=== PATIENT | female | born 1995 | race Caucasian/White ===

== ENCOUNTER 2017-08-03 05:51 | Inpatient (IN) ==
--- OUTSIDE RECORDS SUMMARY | 2017-08-03 05:56 | External Medical Summary ---
:1995 Author Organization [facility] Address [address] [place] [address] Care Team Providers Name Role Phone Alessandra Kirkpatrick Unavailable Unavailable PROBLEMS Type Condition ICD9-CM Code LVN40-ZM Code Onset Condition SNOMED Code Dates Status Problem Mild intermittent J45.20 Active 571962722 asthma without complication Problem Normal first Z34.01 Active 578378396 confirmed, currently in first trimester ALLERGIES No Information SOCIAL HISTORY Never Assessed PLAN OF CARE VITAL SIGNS MEDICATIONS Unknown Medications RESULTS No Results PROCEDURES No Known procedures IMMUNIZATIONS No Known Immunizations MEDICAL (GENERAL) HISTORY Type Description Date Medical History Mild intermittent asthma without complication Surgical History Inguinal hernia repair 15 months
--- OUTSIDE RECORDS SUMMARY | 2017-08-03 05:56 | External Medical Summary ---
:1995 Author Organization [facility] Address [address] [place] [address] Care Team Providers Name Role Phone Alessandra Kirkpatrick Unavailable Unavailable PROBLEMS Type Condition ICD9-CM Code JSH18-BP Code Onset Condition SNOMED Code Dates Status Problem Acute allergic J30.9 Active 45053474 rhinitis, unspecified seasonality, unspecified trigger Problem Mild intermittent J45.20 Active 204385686 asthma without complication Problem Normal first Z34.01 Active 740847488 confirmed, currently in first trimester ALLERGIES No Information SOCIAL HISTORY Never Assessed PLAN OF CARE Activity Details Follow Up 2 Weeks Reason:OB check VITAL SIGNS Weight 132.4 lbs 2017-06-09 Blood pressure systolic 110 mm Hg 2017-06-09 Blood pressure diastolic 64 mm Hg 2017-06-09 MEDICATIONS Medication Instructions Dosage Frequency Start End Date Duration Status Date Zyrtec Allergy Orally Once a 1 tablet 24h 16 May, 15 Oct, day(s) Active 10 MG day 2016 2017 ProAir HFA 108 Inhalation every 2 puffs as 4h Feb, days Active (90 Base) 4 hrs needed 2016 MCG/ACT RESULTS No Results PROCEDURES Procedure Date Ordered Result Body Site INJ : TDaP 7YRS AND OLDER (Adacel) Jun 09, 2017 IMMUNIZATIONS Vaccine Route Administration Date Status INJ: Tdap 7yrs and Older(adacel) IM Intramuscular Jun 09, 2017 Administered MEDICAL (GENERAL) HISTORY Type Description Date Medical History Mild intermittent asthma without complication Surgical History Inguinal hernia repair 15 months
--- OUTSIDE RECORDS SUMMARY | 2017-08-03 05:56 | External Medical Summary ---
:1995 Author Organization [facility] Address [address] [place] [address] Care Team Providers Name Role Phone Alessandra Kirkpatrick Unavailable Unavailable PROBLEMS Type Condition ICD9-CM Code JPJ90-RQ Code Onset Condition SNOMED Code Dates Status Problem Acute allergic J30.9 Active 85838167 rhinitis, unspecified seasonality, unspecified trigger Problem Mild intermittent J45.20 Active 408301558 asthma without complication Problem Normal first Z34.01 Active 422759796 confirmed, currently in first trimester ALLERGIES No Information SOCIAL HISTORY Never Assessed PLAN OF CARE Activity Details Follow Up 2 Weeks Reason:OB check Pending Test UDS CONFRIMATION VITAL SIGNS Weight 136 lbs 2017-06-23 Blood pressure systolic 110 mm Hg 2017-06-23 Blood pressure diastolic 72 mm Hg 2017-06-23 MEDICATIONS Medication Instructions Dosage Frequency Start End Date Duration Status Date ProAir HFA 108 Inhalation every 2 puffs as 4h Feb, days Active (90 Base) 4 hrs needed 2016 MCG/ACT Zyrtec Allergy Orally Once a 1 tablet 24h May, Oct, 30 day(s) Active 10 MG day 2016 2017 RESULTS Name Result Date Reference Range [facility] In-House UDS 2017-06-23 THC NEG NEGATIVE - COCAINE NEG NEGATIVE - OPIATES NEG NEGATIVE - AMPHETAMINE NEG NEGATIVE - METHAMPHETAMINE NEG NEGATIVE - PHENCYCLIDINE NEG NEGATIVE - ECSTACY(MDMA) NEG NEGATIVE - BARBITURATES NEG NEGATIVE - BENZODIAZEPHINES NEG NEGATIVE - METHADONE NEG NEGATIVE - TRICYCLIC ANTIDEPRESSANTS NON-NEG NEGATIVE - OXYCODONE NEG NEGATIVE - ALL NON-NEGATIVES WILL BE SENT FOR CONFIRMATION BY PROVIDER REQUEST PROCEDURES Procedure Date Ordered Result Body Site DRUG TEST PRSMV DIR OPT OBS Jun 23, 2017 IMMUNIZATIONS No Known Immunizations MEDICAL (GENERAL) HISTORY Type Description Date Medical History Mild intermittent asthma without complication Surgical History Inguinal hernia repair 15 months
--- OUTSIDE RECORDS SUMMARY | 2017-08-03 05:56 | External Medical Summary ---
:1995 Author Organization [facility] Address [address] [place] [address] Care Team Providers Name Role Phone Alessandra Kirkpatrick Unavailable Unavailable PROBLEMS Type Condition ICD9-CM Code NVE74-IL Code Onset Condition SNOMED Code Dates Status Problem Acute allergic J30.9 Active 60073849 rhinitis, unspecified seasonality, unspecified trigger Problem Mild intermittent J45.20 Active 137922273 asthma without complication Problem Normal first Z34.01 Active 955211571 confirmed, currently in first trimester ALLERGIES No Information SOCIAL HISTORY Never Assessed PLAN OF CARE VITAL SIGNS MEDICATIONS Unknown Medications RESULTS No Results PROCEDURES No Known procedures IMMUNIZATIONS No Known Immunizations MEDICAL (GENERAL) HISTORY Type Description Date Medical History Mild intermittent asthma without complication Surgical History Inguinal hernia repair 15 months
--- OUTSIDE RECORDS SUMMARY | 2017-08-03 05:56 | External Medical Summary ---
:[address] [facility] Address [address] [place] [address] Care Team Providers Name Role Phone Alessandra Kirkpatrick Unavailable Unavailable PROBLEMS Type Condition ICD9-CM Code HLD57-QT Code Onset Condition SNOMED Code Dates Status Problem Acute allergic J30.9 Active 23980968 rhinitis, unspecified seasonality, unspecified trigger Problem Mild intermittent J45.20 Active 951570006 asthma without complication Problem Normal first Z34.01 Active 756583230 confirmed, currently in first trimester ALLERGIES No Information SOCIAL HISTORY Never Assessed PLAN OF CARE Activity Details Follow Up 2 Weeks Reason:OB check Pending Test URINE GC/CHLAMYDIA* VITAL SIGNS Weight 131 lbs 2017-05-26 Blood pressure systolic 100 mm Hg 2017-05-26 Blood pressure diastolic 66 mm Hg 2017-05-26 MEDICATIONS Medication Instructions Dosage Frequency Start End Date Duration Status Date Zyrtec Allergy Orally Once a 1 tablet 24h 16 May, Oct, 30 day(s) Active 10 MG day 2016 2017 Flagyl 500 MG Orally BID 1 tablet 12h 16 May, May, 07 days Active 2016 2016 ProAir HFA 108 Inhalation every 2 puffs as 4h Feb, 30 days Active (90 Base) 4 hrs needed 2016 MCG/ACT RESULTS Name Result Date Reference Range [facility] Wet [facility] 2017-05-26 WBC's 0 NONE - SEEN Clue Cells FEW NONE - SEEN Yeast 0 NONE - SEEN Trich 0 NONE - SEEN Bacteria MOD NONE - SEEN SQ Epi MANY NONE - SEEN Comment [facility] In-House UDS 2017-05-26 THC NEG NEGATIVE - COCAINE NEG NEGATIVE - OPIATES NEG NEGATIVE - AMPHETAMINE NEG NEGATIVE - METHAMPHETAMINE NEG NEGATIVE - PHENCYCLIDINE NEG NEGATIVE - ECSTACY(MDMA) NEG NEGATIVE - BARBITURATES NEG NEGATIVE - BENZODIAZEPHINES NEG NEGATIVE - METHADONE NEG NEGATIVE - TRICYCLIC ANTIDEPRESSANTS NEG NEGATIVE - OXYCODONE NEG NEGATIVE - ALL NON-NEGATIVES WILL BE SENT FOR CONFIRMATION PROCEDURES Procedure Date Ordered Result Body Site [facility] WET [facility] May 26, 2017 DRUG TEST PRSMV DIR OPT OBS May 26, 2017 IMMUNIZATIONS No Known Immunizations MEDICAL (GENERAL) HISTORY Type Description Date Medical History Mild intermittent asthma without complication Surgical History Inguinal hernia repair 15 months
--- OUTSIDE RECORDS SUMMARY | 2017-08-03 05:56 | External Medical Summary ---
:1995 Author Organization [facility] Address [address] [place] [address] Care Team Providers Name Role Phone Alessandra Kirkpatrick Unavailable Unavailable PROBLEMS Type Condition ICD9-CM Code BTV57-AL Code Onset Condition SNOMED Code Dates Status Problem Mild intermittent J45.20 Active 332276222 asthma without complication Problem Normal first Z34.01 Active 380589698 confirmed, currently in first trimester ALLERGIES No Information SOCIAL HISTORY Never Assessed PLAN OF CARE VITAL SIGNS MEDICATIONS Unknown Medications RESULTS No Results PROCEDURES No Known procedures IMMUNIZATIONS No Known Immunizations MEDICAL (GENERAL) HISTORY Type Description Date Medical History Mild intermittent asthma without complication Surgical History Inguinal hernia repair 15 months
--- OUTSIDE RECORDS SUMMARY | 2017-08-03 05:56 | External Medical Summary ---
:1995 Author Organization [facility] Address [address] [place] [address] Care Team Providers Name Role Phone Alessandra Kirkpatrick Unavailable Unavailable PROBLEMS Type Condition ICD9-CM Code VRV05-PG Code Onset Condition SNOMED Code Dates Status Problem Acute allergic J30.9 Active 47398112 rhinitis, unspecified seasonality, unspecified trigger Problem Mild intermittent J45.20 Active 472549011 asthma without complication Problem Normal first Z34.01 Active 515010091 confirmed, currently in first trimester ALLERGIES No Information SOCIAL HISTORY Never Assessed PLAN OF CARE Activity Details Follow Up 1 Week Reason:OB check Pending Test US BIOPHYSICAL VITAL SIGNS Weight 142.8 lbs 2017-07-27 Blood pressure systolic 126 mm Hg 2017-07-27 Blood pressure diastolic 80 mm Hg 2017-07-27 MEDICATIONS Medication Instructions Dosage Frequency Start End Date Duration Status Date Zyrtec Allergy Orally Once a 1 tablet 24h 16 May, 15 Oct, 30 day(s) Active 10 MG day 2016 2017 ProAir HFA 108 Inhalation every 2 puffs as 4h Feb, days Active (90 Base) 4 hrs needed 2016 MCG/ACT RESULTS Name Result Date Reference Range [facility] In-House UDS 2017-07-27 THC NEG NEGATIVE - COCAINE NEG NEGATIVE [...] Site DRUG TEST PRSMV DIR OPT OBS Jul 27, 2017 BIOPHYS PROFILE W/NST Jul 27, 2017 IMMUNIZATIONS No Known Immunizations MEDICAL (GENERAL) HISTORY Type Description Date Medical History Mild intermittent asthma without complication Surgical History Inguinal hernia repair 15 months
--- OUTSIDE RECORDS SUMMARY | 2017-08-03 05:56 | External Medical Summary ---
:1995 Author Organization [facility] Address [address] [place] [address] Care Team Providers Name Role Phone Alessandra Kirkpatrick Unavailable Unavailable PROBLEMS Type Condition ICD9-CM Code VCE36-BP Code Onset Condition SNOMED Code Dates Status Problem Acute allergic J30.9 Active 24503887 rhinitis, unspecified seasonality, unspecified trigger Problem Mild intermittent J45.20 Active 789670862 asthma without complication Problem Normal first Z34.01 Active 049126192 confirmed, currently in first trimester ALLERGIES No Information SOCIAL HISTORY Never Assessed PLAN OF CARE Activity Details Follow Up 2 Weeks Reason:OB check VITAL SIGNS Weight 145 lbs 2017-07-05 Blood pressure systolic 118 mm Hg 2017-07-05 Blood pressure diastolic 74 mm Hg 2017-07-05 MEDICATIONS Medication Instructions Dosage Frequency Start End Date Duration Status Date Zyrtec Allergy Orally Once a 1 tablet 24h 16 May, 15 Oct, day(s) Active 10 MG day 2016 2017 ProAir HFA 108 Inhalation every 2 puffs as 4h Feb, days Active (90 Base) 4 hrs needed 2016 MCG/ACT RESULTS Name Result Date Reference Range [facility] In-House UDS 2017-07-05 THC NEG NEGATIVE - COCAINE NEG NEGATIVE [...] DRUG TEST PRSMV DIR OPT OBS Jul 05, 2017 IMMUNIZATIONS No Known Immunizations MEDICAL (GENERAL) HISTORY Type Description Date Medical History Mild intermittent asthma without complication Surgical History Inguinal hernia repair 15 months
--- OUTSIDE RECORDS SUMMARY | 2017-08-03 05:56 | External Medical Summary ---
:1995 Author Organization [facility] Address [address] [place] [address] Care Team Providers Name Role Phone Alessandra Kirkpatrick Unavailable Unavailable PROBLEMS Type Condition ICD9-CM Code WHI45-ZC Code Onset Condition SNOMED Code Dates Status Problem Normal first Z34.01 Active 568059791 confirmed, currently in first trimester Problem Mild intermittent J45.20 Active 151819927 asthma without complication ALLERGIES No Information SOCIAL HISTORY Never Assessed PLAN OF CARE VITAL SIGNS MEDICATIONS Unknown Medications RESULTS No Results PROCEDURES No Known procedures IMMUNIZATIONS No Known Immunizations MEDICAL (GENERAL) HISTORY Type Description Date Medical History Mild intermittent asthma without complication Surgical History Inguinal hernia repair 15 months
--- OUTSIDE RECORDS SUMMARY | 2017-08-03 05:56 | External Medical Summary ---
:1995 Author Organization [facility] Address [address] [place] [address] Care Team Providers Name Role Phone Alessandra Kirkpatrick Unavailable Unavailable PROBLEMS Type Condition ICD9-CM Code IFA30-SJ Code Onset Condition SNOMED Code Dates Status Problem Mild intermittent J45.20 Active 047435981 asthma without complication Problem Normal first Z34.01 Active 379292668 confirmed, currently in first trimester ALLERGIES No Information SOCIAL HISTORY Never Assessed PLAN OF CARE Activity Details Follow Up 2 Weeks Reason:OB check Pending Test GLUC 1 HR PP(GLUCOLA) PREG Pending Test CBC AUTO DIFF MANUAL IF INDICATED* VITAL SIGNS Weight 131 lbs 2017-05-10 Blood pressure systolic 98 mm Hg 2017-05-10 Blood pressure diastolic 64 mm Hg 2017-05-10 MEDICATIONS Medication Instructions Dosage Frequency Start End Date Duration Status Date Orally Daily 1 tablet 24h Active Vitamin 27-0.8 MG ProAir HFA 108 Inhalation every 2 puffs as 4h Feb, days Active (90 Base) 4 hrs needed 2016 MCG/ACT RESULTS Name Result Date Reference Range [facility] Venipuncture-Charge Only 2017-05-10 [facility] In-House UDS 2017-05-10 THC NEG NEGATIVE - COCAINE NEG NEGATIVE - OPIATES NEG NEGATIVE - AMPHETAMINE NEG NEGATIVE - METHAMPHETAMINE NEG NEGATIVE - PHENCYCLIDINE NEG NEGATIVE - ECSTACY(MDMA) NEG NEGATIVE - BARBITURATES NEG NEGATIVE - BENZODIAZEPHINES NEG NEGATIVE - METHADONE NEG NEGATIVE - TRICYCLIC ANTIDEPRESSANTS NEG NEGATIVE - OXYCODONE NEG NEGATIVE - ALL NON-NEGATIVES WILL BE SENT FOR CONFIRMATION GLUC 1 HR PP(GLUCOLA) PREG 2017-05-10 Reference Lab GLU GM DOSE: R SERUM 1 HOUR 95 CBC AUTO DIFF MANUAL IF INDICATED* 2017-05-10 WBC 12.0 4.0 - 10.1 %LYMPH 24 20 - 40 %MONO 8.2 1.7 - 9.3 %GRAN 66.2 42.2 - 75.2 %EOS 1 0 - 2 %BASO 0 0 - 1 RBC 4.10 3.50 - 6.00 HEMOGLOBIN 12.1 12.0 - 15.0 HEMATOCRIT 35.5 36.0 - 44.0 MCV 86.6 80.0 - 100 MCH 29.5 27.0 - 34.0 MCHC 34.1 31.5 - 36.0 RDW 13.0 11.5 - 14.0 PLT 293 150 - 450 MPV 10.7 7.4 - 11.0 MANUAL DIFF NOT INDICATED PROCEDURES Procedure Date Ordered Result Body Site DRUG TEST PRSMV DIR OPT OBS May 10, 2017 VENIPUNCTURE May 10, 2017 IMMUNIZATIONS No Known Immunizations MEDICAL (GENERAL) HISTORY Type Description Date Medical History Mild intermittent asthma without complication Surgical History Inguinal hernia repair 15 months
--- OUTSIDE RECORDS SUMMARY | 2017-08-03 05:56 | External Medical Summary ---
:1995 Author Organization [facility] Address [address] [place] [address] Care Team Providers Name Role Phone Zia Noonan Unavailable Unavailable PROBLEMS Type Condition ICD9-CM Code PLD19-RQ Code Onset Condition SNOMED Code Dates Status Problem Acute allergic J30.9 Active 56294198 rhinitis, unspecified seasonality, unspecified trigger Problem Mild intermittent J45.20 Active 211410196 asthma without complication Problem Normal first Z34.01 Active 281441584 confirmed, currently in first trimester ALLERGIES No Known Allergies SOCIAL HISTORY Never Assessed PLAN OF CARE Activity Details Follow Up 1 Week, 1 Week Reason: Pending Test DRUG SCREEN IN HOUSE URINE* Pending Test URINE (C&S IF INDICATED)-UA VITAL SIGNS Weight 146.6 lbs 2017-07-21 Height 0 in 2017-07-21 Heart Rate 106 /min 2017-07-21 Respiratory Rate 20 /min 2017-07-21 Temperature 96.3 degrees Fahrenheit 2017-07-21 Oximetry 99 % 2017-07-21 Blood pressure systolic 124 mm Hg 2017-07-21 Blood pressure diastolic 82 mm Hg 2017-07-21 MEDICATIONS Medication Instructions Dosage Frequency Start End Date Duration Status Date ProAir HFA 108 Inhalation every 2 puffs as 4h Feb, 30 days Active (90 Base) 4 hrs needed 2016 MCG/ACT Zyrtec Allergy Orally Once a 1 tablet 24h 16 May, 15 Oct, 30 day(s) Active 10 MG day 2016 2017 RESULTS No Results PROCEDURES No Known procedures IMMUNIZATIONS No Known Immunizations MEDICAL (GENERAL) HISTORY Type Description Date Medical History Mild intermittent asthma without complication Surgical History Inguinal hernia repair 15 months
--- OUTSIDE RECORDS SUMMARY | 2017-08-03 05:56 | External Medical Summary ---
:1995 Author Organization [facility] Address [address] [place] [address] Care Team Providers Name Role Phone Alessandra Kirkpatrick Unavailable Unavailable PROBLEMS Type Condition ICD9-CM Code BKW63-BU Code Onset Condition SNOMED Code Dates Status Problem Acute allergic J30.9 Active 86598242 rhinitis, unspecified seasonality, unspecified trigger Problem Mild intermittent J45.20 Active 843621025 asthma without complication Problem Normal first Z34.01 Active 948238719 confirmed, currently in first trimester ALLERGIES No Information SOCIAL HISTORY Never Assessed PLAN OF CARE Activity Details Follow Up 1 Week Reason:OB check Pending Test STREP B VAG SCREEN Pending Test US OB G14 WKS VITAL SIGNS Weight 140.2 lbs 2017-07-19 Blood pressure systolic 122 mm Hg 2017-07-19 Blood pressure diastolic 76 mm Hg 2017-07-19 MEDICATIONS Medication Instructions Dosage Frequency Start End Date Duration Status Date ProAir HFA 108 Inhalation every 2 puffs as 4h Feb, days Active (90 Base) 4 hrs needed 2017 MCG/ACT Zyrtec Allergy Orally Once a 1 tablet 24h 16 May, 15 Oct, 30 day(s) Active 10 MG day 2016 2017 RESULTS Name Result Date Reference Range [facility] In-House UDS 2017-07-19 THC NEG NEGATIVE - COCAINE NEG NEGATIVE [...] DRUG TEST PRSMV DIR OPT OBS Jul 19, 2017 OB US >/=14 WKS, SNGL FETUS Jul 19, 2017 IMMUNIZATIONS No Known Immunizations MEDICAL (GENERAL) HISTORY Type Description Date Medical History Mild intermittent asthma without complication Surgical History Inguinal hernia repair 15 months
--- OUTSIDE RECORDS SUMMARY | 2017-08-03 05:56 | External Medical Summary ---
:1995 Author Organization [facility] Address [address] [place] [address] Care Team Providers Name Role Phone Alessandra Kirkpatrick Unavailable Unavailable PROBLEMS Type Condition ICD9-CM Code HEO65-BU Code Onset Condition SNOMED Code Dates Status Problem Normal first Z34.01 Active 167199101 confirmed, currently in first trimester Problem Mild intermittent J45.20 Active 577802282 asthma without complication ALLERGIES No Information SOCIAL HISTORY Never Assessed PLAN OF CARE Activity Details Follow Up 4 Weeks Reason:OB check Pending Test QUAD MARKER Pending Test OB G14 WKS COMPLETE VITAL SIGNS Weight 119.4 lbs 2017-03-11 Blood pressure systolic 114 mm Hg 2017-03-11 Blood pressure diastolic 68 mm Hg 2017-03-11 MEDICATIONS Unknown Medications RESULTS Name Result Date Reference Range [facility] Venipuncture-Charge Only 2017-03-11 [facility] In-House UDS 2017-03-11 THC NEG NEGATIVE - COCAINE NEG NEGATIVE - OPIATES NEG NEGATIVE - AMPHETAMINE NEG NEGATIVE - METHAMPHETAMINE NEG NEGATIVE - PHENCYCLIDINE NEG NEGATIVE - ECSTACY(MDMA) NEG NEGATIVE - BARBITURATES NEG NEGATIVE - BENZODIAZEPHINES NEG NEGATIVE - METHADONE NEG NEGATIVE - TRICYCLIC ANTIDEPRESSANTS NEG NEGATIVE - OXYCODONE NEG NEGATIVE - ALL NON-NEGATIVES WILL BE SENT FOR CONFIRMATION [facility] Venipuncture-Charge Only 2017-03-11 QUAD MARKER 2017-03-11 Calculated age at JOHN 21 years Maternal Weight Pounds 119 Insulin depend diabetes None Black race non-Black JOHN by U/S scan 08/13/2017 GA on collect by U/S 17,6 GA used in risk estimate Scan estimate AFP SEE BELOW uE3 SEE BELOW hCG, Total SEE BELOW Inhibin SEE BELOW Down syndrome risk est 08/03,000 Down syndrome age risk Trisomy 18 screen risk Interpretation SEE BELOW Recommended Follow Up None. General Test Information SEE BELOW Other Information Initial testing [facility] In-House UDS 2017-03-11 THC NEG NEGATIVE - COCAINE NEG NEGATIVE - OPIATES NEG NEGATIVE - AMPHETAMINE NEG NEGATIVE - METHAMPHETAMINE NEG NEGATIVE - PHENCYCLIDINE NEG NEGATIVE - ECSTACY(MDMA) NEG NEGATIVE - BARBITURATES NEG NEGATIVE - BENZODIAZEPHINES NEG NEGATIVE - METHADONE NEG NEGATIVE - TRICYCLIC ANTIDEPRESSANTS NEG NEGATIVE - OXYCODONE NEG NEGATIVE - ALL NON-NEGATIVES WILL BE SENT FOR CONFIRMATION [facility] Venipuncture-Charge Only 2017-03-11 QUAD MARKER 2017-03-11 Calculated age at JOHN 21 years Maternal Weight Pounds 119 Insulin depend diabetes None Black race non-Black JOHN by U/S scan 08/13/2017 GA on collect by U/S 17,6 GA used in risk estimate Scan estimate AFP SEE BELOW uE3 SEE BELOW hCG, Total SEE BELOW Inhibin SEE BELOW Down syndrome risk est 08/03, Down syndrome age risk Trisomy 18 screen risk Interpretation SEE BELOW Recommended Follow Up None. General Test Information SEE BELOW Other Information Initial testing [facility] In-House UDS 2017-03-11 THC NEG NEGATIVE - COCAINE NEG NEGATIVE - OPIATES NEG NEGATIVE - AMPHETAMINE NEG NEGATIVE - METHAMPHETAMINE NEG NEGATIVE - PHENCYCLIDINE NEG NEGATIVE - ECSTACY(MDMA) NEG NEGATIVE - BARBITURATES NEG NEGATIVE - BENZODIAZEPHINES NEG NEGATIVE - METHADONE NEG NEGATIVE - TRICYCLIC ANTIDEPRESSANTS NEG NEGATIVE - OXYCODONE NEG NEGATIVE - ALL NON-NEGATIVES WILL BE SENT FOR CONFIRMATION US OB G14 WKS COMPLETE PROCEDURES Procedure Date Ordered Result Body Site DRUG TEST PRSMV DIR OPT OBS Mar 11, 2017 OB US, DETAILED, SNGL FETUS Mar 11, 2017 VENIPUNCTURE Mar 11, 2017 IMMUNIZATIONS No Known Immunizations MEDICAL (GENERAL) HISTORY Type Description Date Medical History Mild intermittent asthma without complication Surgical History Inguinal hernia repair 15 months
--- OUTSIDE RECORDS SUMMARY | 2017-08-03 05:56 | External Medical Summary ---
:1996 Author Organization [facility] Address [address] [place] [address] Care Team Providers Name Role Phone Raymundo Hilton Unavailable Unavailable PROBLEMS Type Condition ICD9-CM Code COM65-KD Code Onset Condition SNOMED Code Dates Status Problem Mild intermittent J45.20 Active 190667476 asthma without complication Problem Normal first Z34.01 Active 980367673 confirmed, currently in first trimester ALLERGIES No Known Allergies SOCIAL HISTORY Never Assessed PLAN OF CARE Activity Details Follow Up 2 Weeks Reason:as needed for repeat OMT VITAL SIGNS Weight 131.4 lbs 2017-05-17 Height 0 in 2017-05-17 Heart Rate 76 /min 2017-05-17 Respiratory Rate 16 /min 2017-05-17 Blood pressure systolic 112 mm Hg 2017-05-17 Blood pressure diastolic 65 mm Hg 2017-05-17 MEDICATIONS Medication Instructions Dosage Frequency Start End Date Duration Status Date ProAir HFA 108 Inhalation every 2 puffs as 4h Feb, 30 days Active (90 Base) 4 hrs needed 2016 MCG/ACT RESULTS No Results PROCEDURES No Known procedures IMMUNIZATIONS No Known Immunizations MEDICAL (GENERAL) HISTORY Type Description Date Medical History Mild intermittent asthma without complication Surgical History Inguinal hernia repair 15 months
--- OUTSIDE RECORDS SUMMARY | 2017-08-03 05:56 | External Medical Summary ---
:1995 Author Organization [facility] Address [address] [place] [address] Care Team Providers Name Role Phone Alessandra Kirkpatrick Unavailable Unavailable PROBLEMS Type Condition ICD9-CM Code [id number] Code Onset Condition SNOMED Code Dates Status Problem Mild intermittent J45.20 Active 755806976 asthma without complication Problem Normal first Z34.01 Active [id number] confirmed, currently in first trimester ALLERGIES No Information SOCIAL HISTORY Never Assessed PLAN OF CARE Activity Details Follow Up 4 Weeks Reason:OB check VITAL SIGNS Weight 127.4 lbs 2017-04-12 Blood pressure systolic 114 mm Hg 2017-04-12 Blood pressure diastolic 60 mm Hg 2017-04-12 MEDICATIONS Unknown Medications RESULTS Name Result Date Reference Range [facility] In-House UDS 2017-04-12 THC NEG NEGATIVE - COCAINE NEG NEGATIVE [...] Site DRUG TEST PRSMV DIR OPT OBS Apr 12, 2017 IMMUNIZATIONS No Known Immunizations MEDICAL (GENERAL) HISTORY Type Description Date Medical History Mild intermittent asthma without complication Surgical History Inguinal hernia repair 15 months
[2017-08-03 06:53] VITALS: BMI 26.4
[2017-08-03] MEDS ORDERED: SALINE FLUSH 10ml SYRINGE IV PRN (08:10)
[2017-08-03] MEDS ORDERED: ACETAMINOPHEN 500 MG TABLET PO PRN (08:10)
[2017-08-03] MEDS ORDERED: DINOPROSTONE 10 MG VAGINAL INSERT VG ONE (08:10)
[2017-08-03] MEDS ORDERED: MAG-AL + SIM ORAL LIQUID 30ml PO PRN (08:10)
[2017-08-03] MEDS ORDERED: TERBUTALINE 1 MG/ML VIAL SQ PRN (08:10)
[2017-08-03] MEDS ORDERED: CALCIUM CARBONATE Chewable 500mg TABLET PO PRN (08:10)
[2017-08-03] MEDS ORDERED: METHYLERGONOVINE 0.2 MG/ML INJECTION IM PRN (08:10)
[2017-08-03] MEDS ORDERED: LIDOCAINE 1% (10mg/ml) 2mL INJ PF SDV ID PRN (08:10)
[2017-08-03] MEDS ORDERED: CARBOPROST 250 MCG/ML INJECTION IM PRN (08:10)
--- NOTE | 2017-08-03 08:22 | OB/GYN History & Physical ---
- History of Present Illness Date of Admission: 08/03/17 05:51 Reason for Admission: other (Cramping with possible loss of fluid) History of Present Illness: 21 y/o presented unassinged to [facility] maternal child unit with complaints of occasional ctx and possible loss of fluid. She has recieved routine PNC from [facility] in [facility] but has decided she would prefer not to deliver there. She is 38w4d by a 13w6d sono with and EDC 08/13/17. She reports no complications with to date. She states she has good FM, reported a mild RAINEY that resolved on its onwn and denies Vision changes or RUQ pain. Expected Date of Delivery: 08/13/17 : 1 Review of Systems - Constitutional Constitutional: Present: as per HPI - EENT Eyes: Absent: blurry vision, change in vision Ears: Absent: ear discharge, ear pain - Cardiovascular Cardiovascular: Absent: chest pain, palpitations, syncope, dyspnea on exertion - Respiratory Respiratory: Absent: cough, dyspnea - Gastrointestinal Gastrointestinal: Present: abdominal pain. Absent: change in bowel habits - Genitourinary Genitourinary: Absent: abnormal vaginal bleeding Menstruation: Present: amenorrhea - Musculoskeletal Musculoskeletal: Absent: abnormal gait, arthralgias - Integumentary/Breasts Integumentary: Absent: alopecia, change in hair - Neurological Neurological: Absent: abnormal gait, abnormal movements - Psychiatric Psychiatric: Absent: abnormal sleep pattern, anxiety - Endocrine Endocrine: Absent: cold intolerance, excessive sweating - Hematologic/Lymphatic Hematologic/Lymphatic: Absent: easy bleeding - Allergic/Immunologic Allergic/Immunologic: Absent: tongue swelling PFSH Patient Stated Medical History Heart Murmur No Hypertension No Hypotension No Asthma Yes: uses albuterol inhaler Pneumonia No Pulmonary Edema No Sleep Apnea No Other Respiratory Yes: RSV as child Gastroesophageal Reflux No Disease Ulcer No Hx Kidney Stones Yes Hx Urinary Tract Infection Yes Anemia No Blood Disorders No Clotting Problems No Cellulitis No Human Immunodeficiency Virus ( No HIV) MRSA No Sepsis No Anesthesia Reactions No Blood Transfusions No Depression Yes: no meds Eating Disorder Yes: anorexia Substance Use Disorder Yes: meth use in past. none when she found out she was Endometriosis No Fibroids No Irregular Menses No Ovarian Cysts Yes Now Yes Reports Seizure x 2 a year ago without diagnosis of epilepsy Surgical History: WTE Family History: Seizure disorder maternal grandmother and maternal great uncle - Social History Smoking status: Current every day smoker Time spent discussing smoking cessation with patient: 3 to 10 minutes Substance use type: former substance user (Methamphetamine) Alcohol intake frequency: does not drink Housing: apartment Household members: none Does patient use chewing tobacco?: No Current residence: Apartment/Private Home Medications Home Medications Medication Instructions Recorded Confirmed Type Albuterol HFA Inhaler [Ventolin 2 puff ORAL INH Q4H PRN 08/03/17 08/03/17 History Hfa 90 mcg/actuation] Allergies Allergy/AdvReac Type Severity Reaction Status Date / Time No Known Allergies Allergy Verified 08/03/17 07:58 Exam Vital signs: Temperature 96.9 F 08/03/17 06:02 Pulse Rate 85 08/03/17 06:02 Respiratory Rate 20 08/03/17 06:02 Blood Pressure 155/92 H 08/03/17 06:02 - Constitutional Present: no acute distress - Neck Exam Present: supple, full ROM - Respiratory Exam Present: CTA bilaterally - Cardiovascular Exam Present: RRR. Absent: murmur - Abdominal Exam Absent: tenderness, distended Comments: Gravid NTTP - Extremities Exam Extremities: Present: no edema, non tender - Neurological Exam Present: alert, oriented X3 - Skin Exam Present: intact - Psychiatric Exam Present: normal affect, normal thought process MANAGER IMMUNOLOGY Results - Labs CBC & Chem 7: 08/03/17 06:51 08/03/17 06:51 Antepartum Assessment and Plan (1) Hypertension affecting in third trimester Problem details: Ne eval for HELP. GTHN [place]/Cr ration 0.40 C/W preeclampsia without severe features. Discussed Indication for IOL at term, unfavorable cervix, need for cervical ripening prior to IOL. Discussed IOL and R/B/A. Qeustions elicited and answered. Cervidil followed by IOL. Records reviewed. Will call Obstertrical provider to get labs. Current visit: Yes Status: Acute
--- NOTE | 2017-08-03 09:17 | OB/GYN Progress Note ---
- Pelvic Exam Dilation (cm): 1 Effacement (%): 50 station: -4 Amniotic membrane status: Intact - Contractions Monitor mode: External Contraction pattern: Irregular Contraction intensity: Mild (Does not report feeling ctx other than mild cramp) - Assessment and Plan Assessment: induction ongoing (Cervidil placed) Plan: continuous present management
[2017-08-03] MEDS ORDERED: ZOLPIDEM 5 MG TABLET PO PRN (15:44)
[2017-08-03] MEDS ORDERED: PROMETHAZINE 25 MG INJECTION IM PRN (18:36)
[2017-08-03] MEDS ORDERED: MORPHINE SULFATE 10 MG SYRINGE SQ ONE (18:56)
[2017-08-04] MEDS ORDERED: D5LR 1,000 ML IV PRN (04:00)
[2017-08-04] MEDS ORDERED: AMPICILLIN 2 GM in NS 100 ML IV ONE (04:00)
[2017-08-04] MEDS ORDERED: OXYTOCIN DRIP 30 UNIT/500 ML ML IV PRN (04:00)
[2017-08-04] MEDS: LR 1,000 ML IV PRN ×2 (04:15→08:05)
[2017-08-04] MEDS ORDERED: BUTORPHANOL 2 MG/ML INJECTION IVP PRN (05:27)
[2017-08-04] MEDS: AMPICILLIN 1 GM in NS 100 ML IV SCH ×2 (08:14→22:22)
--- NOTE | 2017-08-04 08:33 | OB/GYN Progress Note ---
- Pain Control Pain control: Tolerating well, Epidural - Pelvic Exam Dilation (cm): 5 Effacement (%): 70 station: -1 Amniotic membrane status: Ruptured Comments: Cervical exam per nursing at 0735 - Contractions Monitor mode: External Contraction pattern: Regular Contraction intensity: Strong/Firm (Does not report feeling ctx other than mild cramp) - Status status: Category l - Assessment and Plan Assessment: induction ongoing Plan: continuous present management Comments: Preeclampsia without severe features.
[2017-08-04] MEDS ORDERED: ROPIVACAINE 1% 10MG/ML INJ 200 MG, SUFentanil 50 MCG in NS 100 ML EPI PRN (09:25)
[2017-08-04] MEDS ORDERED: DiphenhydrAMINE 50 MG/ML INJECTION IVP PRN (09:25)
[2017-08-04] MEDS ORDERED: ONDANSETRON 4 MG/2 ML INJECTION IVP PRN (09:25)
[2017-08-04] MEDS ORDERED: NALOXONE 0.4 MG/ML INJECTION IVP PRN (09:25)
--- NOTE | 2017-08-04 09:25 | Anesthesia Preoperative Report ---
Anesthesia Epidural/Spinal Rec - Date and Time Date: 08/04/17 Procedure: Labor Epidural Plan: Epidural - Vital Signs Vital Signs: Temperature 97.7 F 08/03/17 18:47 Pulse Rate 84 08/03/17 18:47 Respiratory Rate 16 08/03/17 18:47 Blood Pressure 121/64 08/03/17 18:47 /Para: P:0 - Medictaions & Allergies Inpatient Medications: Current Medications Acetaminophen (Tylenol) 500 - 1,000 mg PO Q4H PRN PRN Reason: Pain Last Admin: 08/03/17 16:53 Dose: 1,000 mg Al Hydroxide/Mg Hydroxide (Maalox Plus) 30 ml PO Q3H PRN PRN Reason: Indigestion Calcium Carbonate (Tums) 500 - 1,000 mg PO Q2H PRN PRN Reason: Indigestion Carboprost Tromethamine (Hemabate) 250 mcg IM O PRN PRN Reason: .Downtime Diphenhydramine HCl (Benadryl) 50 mg PO HS PRN PRN Reason: Sleep Lactated Ringer's (Lactated Ringers) 1,000 mls @ 999 mls/hr IV .Q1H1M PRN Last Admin: 08/04/17 08:05 Dose: 999 mls/hr Ampicillin Sodium 1 gm/ Sodium (Chloride) 100 mls @ 200 mls/hr IV Q4H LADARIUS Last Admin: 08/04/17 08:14 Dose: 200 mls/hr Dextrose/Lactated Ringer's (Dextrose 5%-Lactated Ringers) 1,000 mls @ 125 mls/ hr IV .Q8H PRN PRN Reason: Labor Last Admin: 08/04/17 04:14 Dose: 125 mls/hr Oxytocin (Pitocin Drip) 30 unit in 500 mls @ 2 mls/hr IV .Q24H PRN; Protocol PRN Reason: Induction/Augmentation Last Admin: 08/04/17 04:11 Dose: 2 mls/hr Ropivacaine 200 mg/ Sufentanil Citrate 50 mcg/ Sodium Chloride 101 mls @ 0 mls/ hr EPI O ONE; As Directed PRN Reason: Protocol Stop: 08/04/17 09:31 Lidocaine HCl (Xylocaine-Mpf 1% Vial) 0.2 mg ID O PRN PRN Reason: IV Start Magnesium Hydroxide (Mom) 30 ml PO DAILY PRN PRN Reason: Constipation Last Admin: 08/03/17 15:49 Dose: 30 ml Methylergonovine Maleate (Methergine) 0.2 mg IM O PRN Misoprostol (Cytotec) 800 mcg [place] ONCE PRN Promethazine HCl (Phenergan Inj) 25 mg IM O PRN Last Admin: 08/03/17 19:09 Dose: 25 mg Sodium Chloride (Iv Flush) 10 - 80 ml IV PRN PRN PRN Reason: Flushing Terbutaline Sulfate (Brethine) 0.25 mg SQ PRN PRN Zolpidem Tartrate (Ambien) 5 mg PO HS PRN PRN Reason: Insomnia Allergies/Adverse Reactions: Allergies Allergy/AdvReac Type Severity Reaction Status Date / Time No Known Allergies Allergy Verified 08/03/17 07:58 - Home Medications Home Medications: Home Medications Medication Instructions Recorded Confirmed Type Albuterol HFA Inhaler [Ventolin 2 puff ORAL INH Q4H PRN 08/03/17 08/03/17 History Hfa 90 mcg/actuation] - Medical History Respiratory: Reports: Asthma (uses albuterol inhaler), Other (RSV as child) DENIES: Dyspnea, Pneumonia, Upper Respiratory Infection, Pulmonary Edema, Sleep Apnea Cardiovascular: DENIES: Heart Murmur, Hypertension, Hypotension, High Cholesterol Gastrointestional: Reports: Nausea or Vomiting Present (nausea) DENIES: Gastroesophageal Reflux Disease, Ulcer Neuro/Musculoskeletal: Reports: Depression (no meds) Denies: Back Problems, Muscle Weakness Other History: Reports: Now DENIES: Anesthesia Reactions, Blood Transfusions - Surgical History GI Surgery/Treatments: Reports: Hernia Repair (umbilical/groin repair at 2 year old) Anesthesia Reactions: None Hx Family Anesthesia Reaction: No History of Motion Sickness: No - Social History Smoking Status: Current every day smoker Time spent discussing smoking cessation with patient: 3 to 10 minutes Substance Use Type: former substance user (Methamphetamine) Alcohol Intake Frequency: does not drink Hx Chewing Tobacco Use: No - Pertinent Findings Lab Data: CBC and BMP 08/04/17 06:02 08/04/17 06:02 BMP 08/03/17 08/04/17 18:07 06:02 Sodium 138 138 Potassium 4.2 D 3.9 Chloride 107 108 H Carbon Dioxide 22 22 BUN 8.0 7.0 Creatinine 0.5 L 0.5 L Glucose 84 91 Calcium 9.2 9.3 Liver Function 08/03/17 08/04/17 Range/Units 18:07 06:02 Total Bilirubin < 0.10 L < 0.10 L (0.20-1.30) MG/DL AST 19 46 H D (14-36) U/L ALT 20 23 (9-52) U/L Alkaline Phosphatase 170 H 163 H (38-126) U/L Albumin 3.6 3.4 L (3.5-5.0) G/DL - Physical Exam Respiratory Exam: lungs clear, bilateral breath sounds equal Cardiovascular Exam: regular rate and rhythm - Airway Assessment Mallampati Score: II TMD: 3 Fingerbreadths Neck Extension: good Overall Assessment: may be difficult mask vent, may be difficult intubation - ASA ASA Score: 2 - Discussion Discussion: Discussed risks/options/alternatives of anesthesia and questions answered. Patient consents. Nursing pain assessment noted. Anesthesia Discussion: parent Attestation Statement: Prior to the delivery of any anesthetic medication, I examined the patient, developed the plan, obtained the patient's consent and discussed the risk and benefits of the procedure with the patient/guardian.
[2017-08-04] MEDS ORDERED: ROPIVACAINE 1% 10MG/ML INJ 200 MG, SUFentanil 50 MCG in NS 80 ML EPI ONE (09:30)
[2017-08-04] MEDS ORDERED: HYDROCORTISONE 2.5% CREAM 30gm RECTALLY PRN (10:24)
[2017-08-04] MEDS ORDERED: DiphenhydrAMINE 25 MG CAPSULE PO PRN (10:24)
[2017-08-04] MEDS ORDERED: MAG-AL + SIM ORAL LIQUID 30ml PO PRN (10:24)
[2017-08-04] MEDS ORDERED: IBUPROFEN 800 MG TABLET PO PRN (10:24)
[2017-08-04] MEDS ORDERED: Oxycodone/Acetaminophen 5/325 1 TAB PO PRN (10:24)
[2017-08-04] MEDS ORDERED: CALCIUM CARBONATE Chewable 500mg TABLET PO PRN (10:24)
[2017-08-04] MEDS ORDERED: ACETAMINOPHEN 500 MG TABLET PO PRN (10:24)
--- NOTE | 2017-08-04 10:38 | OB/GYN Procedure Note ---
Delivery date: 08/04/17 Procedure: Events: Pre-Eclampsia Intrapartal events: None Induction method: per pitocin protocol Delivery monitor: external FHT Route of delivery: Laceration description: Perineal - 2nd Degree Delivery repair: vicryl Estimated blood loss (mL): 600 Anesthesia type: Epidural Disposition: floor - Baby 1 gender: Male presentation: Vertex Placenta delivery description: Spontaneous cord vessel description: 3 Vessels at 1 minute: 7 at 5 minutes: 9 Narrative: Ref #[id number] Report ID [id number]
[2017-08-04] MEDS ORDERED: ALBUTEROL 2.5mg/0.5ml (0.5%) NEB AEROSOL PRN (16:11)
--- NOTE | 2017-08-04 18:07 | Anesthesia Postoperative Note ---
- Date and Time Date: 08/04/17 Time: 18:07 - Status Patient Participated in Evaluation: Patient Participated in Person Vital Signs: Temperature 97.7 F 08/03/17 18:47 Pulse Rate 84 08/03/17 18:47 Respiratory Rate 16 08/03/17 18:47 Blood Pressure 121/64 08/03/17 18:47 Respiratory Function: Airway Patent Mental Status: Alert and Oriented Pain Intensity: 0 Hydration: Taking PO Fluids Complications During Recover: None Apparent - Follow-Up Instructions Instructions: Per Surgeon
--- NOTE | 2017-08-04 18:17 | Labor and Delivery Note ---
DATE OF DELIVERY 08/04/2017 NARRATIVE This is a G1, P0 admitted for cervical ripening and induction of labor at term secondary to preeclampsia without severe features. On admission she was noted to be 1, thick and high with an unfavorable Pandey score. Cervidil was placed and then removed. After cervical ripening was completed she then underwent a Pitocin induction without delivery with spontaneous rupture of membranes on her own. She progressed easily from 2 cm this morning to 4 cm with spontaneous rupture of membranes and then progressed to complete and +2 and pushed for approximately 45 minutes. At delivery she had a spontaneous vaginal delivery over an intact perineum of a viable male named "Primo" with Apgars of 7 /9. She had epidural anesthesia for pain. There was a nuchal cord x 1 that was loose and reduced after delivery of the head and prior to delivery of the shoulders. No difficulty of delivery of the shoulders. There was spontaneous delivery of the placenta and a three-vessel cord was noted. At this time a second-degree perineal laceration was repaired in a normal fashion with 2 -0 Vicryl. Bilateral labial lacerations were repaired with 3-0 chromic. EBL was 600 mL secondary to the second-degree perineal laceration. There was no uterine atony ever noted. Sponge, lap and needle counts were correct x 2. The patient tolerated the procedure well. She was taken to the recovery room in stable condition. BOBBI
--- NOTE | 2017-08-05 08:23 | OB/GYN Progress Note ---
OB-PP Progress Note - General PPD2 Maternal Group B Strep: Positive Maternal blood type: O+ Maternal Rubella Status: Immune - Subjective Date: 08/05/17 Lochia: Minimal Pain: controlled Voiding: voiding Nausea or Vomiting Present: No - Objective Vital Signs: Last Vital Signs Temp 97.8 F 08/04/17 20:26 Pulse 103 H 08/04/17 20:26 Resp 18 08/04/17 20:26 BP 140/81 H 08/04/17 20:26 Pulse Ox 98 08/04/17 20:26 General: alert and oriented Cardiovascular: regular rate,rhythm Respiratory: non-labored Abdomen: fundus firm, non-tender Edema: none - Assessment (1) Hypertension affecting in third trimester Comment: Ne eval for HELP. GTHN [place]/Cr ration 0.40 C/W preeclampsia without severe features. Discussed Indication for IOL at term, unfavorable cervix, need for cervical ripening prior to IOL. Discussed IOL and R/B/A. Qeustions elicited and answered. Cervidil followed by IOL. Records reviewed. Will call Obstertrical provider to get labs. Status: Acute - Assessment Assessment: SP, - Plan Plan: routine care
[2017-08-05] MEDS: IBUPROFEN 800 MG TABLET PO PRN ×2 (08:50→18:13)
[2017-08-05] MEDS: DOCUSATE CALCIUM 240 MG CAPSULE PO SCH (08:50)
[2017-08-05] MEDS: Oxycodone/Acetaminophen 5/325 1 TAB PO PRN ×2 (08:51→18:12)
[2017-08-05 10:19] VITALS: O2SAT 99
[2017-08-05 15:52] VITALS: TEMP 98
[2017-08-05 23:33] VITALS: BP 127/76; PULSE 94; RESP 18
--- NOTE | 2017-08-06 07:37 | OB/GYN Progress Note ---
OB-PP Progress Note - General PPD2 Maternal Group B Strep: Positive Maternal blood type: O+ Maternal Rubella Status: Immune - Subjective Date: 08/06/17 Lochia: Minimal Pain: controlled Voiding: voiding Nausea or Vomiting Present: No - Objective Vital Signs: Last Vital Signs Temp 98.0 F 08/05/17 22:00 Pulse 94 08/05/17 22:00 Resp 18 08/05/17 22:00 BP 127/76 08/05/17 22:00 Pulse Ox 99 08/05/17 08:00 Urine Output: good General: alert and oriented Respiratory: non-labored Abdomen: fundus firm, non-tender Extremities: non-tender Edema: none - Assessment (1) Hypertension affecting in third trimester Comment: Ne eval for HELP. GTHN [place]/Cr ration 0.40 C/W preeclampsia without severe features. Discussed Indication for IOL at term, unfavorable cervix, need for cervical ripening prior to IOL. Discussed IOL and R/B/A. Qeustions elicited and answered. Cervidil followed by IOL. Records reviewed. Will call Obstertrical provider to get labs. Status: Acute - Assessment Assessment: SP, , GBS positive - Plan Plan: routine care, discharge home
[2017-08-06] MEDS: DOCUSATE CALCIUM 240 MG CAPSULE PO SCH (08:24)
[2017-08-06] MEDS: IBUPROFEN 800 MG TABLET PO PRN (08:24)
== END 2017-08-06 12:00 | disposition home or self-care (01) | DRG 775 ==
LOC: OBOBS 05:51 → MC 05:52
PROVIDERS: ADMIT Obstetrics & Gynecology; ATTEND Obstetrics & Gynecology